=== PATIENT | male | born 1960 | race Caucasian/White ===

== ENCOUNTER 2018-01-05 06:06 | Inpatient (IN) | payer OTHER ==
--- NOTE | 2018-01-05 06:14 | ED ---
General Adult HPI - General Chief complaint: Chest Pain Stated complaint: chest pain Source: patient, RN notes reviewed, old records reviewed Mode of arrival: ambulatory Limitations: no limitations - History of Present Illness Initial comments: This is a 57-year-old male the ER for evaluation chest pain. Patient has severe left-sided heaviness and chest pain. No radiation. Symptoms started this morning and then the Progressed. He has had this pain before but usually goes away. History of smoking no other medical history. Patient takes no other medications. No recent travel history no sick contacts no cough or congestion. Occasional shortness of breath. - Related Data Home Medications Medication Instructions Recorded Confirmed [place]'s Wort 150 mg PO DAILY 01/05/18 01/05/18 Tart Pierce 1 tab PO DAILY 01/05/18 01/05/18 buPROPion XL [Wellbutrin XL] 150 mg PO DAILY 01/05/18 01/05/18 Previous Rx's Medication Instructions Recorded Aspirin 81 mg PO DAILY #30 chew 01/07/18 Atorvastatin [Lipitor] 80 mg PO DAILY #30 tab 01/07/18 Losartan [Cozaar] 50 mg PO DAILY #30 tab 01/07/18 Metoprolol Tartrate [Lopressor] 25 mg PO BID #60 tab 01/07/18 Nicotine 21Mg/24Hr Patch [Habitrol] 1 patch TRANSDERM DAILY #30 patch 01/07/18 Ticagrelor [Brilinta] 90 mg PO BID #30 tab 01/07/18 Allergies Allergy/AdvReac Type Severity Reaction Status Date / Time No Known Allergies Allergy Verified 01/05/18 07:22 Review of Systems ROS Statement: Those systems with pertinent positive or pertinent negative responses have been documented in the HPI. ROS Other: All systems not noted in ROS Statement are negative. Past Medical History Past Medical History: No Reported History History of Any Multi-Drug Resistant Organisms: None Reported Past Surgical History: Orthopedic Surgery Additional Past Surgical History / Comment(s): Neck surgery Past Psychological History: Anxiety Smoking Status: Current every day smoker Past Alcohol Use History: Daily, Heavy Past Drug Use History: None Reported - Past Family History Father Family Medical History: Cancer, Coronary Artery Disease (CAD), Diabetes Mellitus Additional Family Medical History / Comment(s): father from lung cancer at the age of 71 yrs. He was a smoker. Mother Family Medical History: Dementia, Pneumonia Additional Family Medical History / Comment(s): Mother at the age of 72 yrs. General Exam Limitations: no limitations General appearance: alert, in no apparent distress Head exam: Present: atraumatic, normocephalic, normal inspection Eye exam: Present: normal appearance, PERRL, EOMI. Absent: scleral icterus, conjunctival injection, periorbital swelling ENT exam: Present: normal exam, mucous membranes moist Neck exam: Present: normal inspection. Absent: tenderness, meningismus, lymphadenopathy Respiratory exam: Present: normal lung sounds bilaterally. Absent: respiratory distress, wheezes, rales, rhonchi, stridor Cardiovascular Exam: Present: regular rate, normal rhythm, normal heart sounds. Absent: systolic murmur, diastolic murmur, rubs, gallop, clicks GI/Abdominal exam: Present: soft, normal bowel sounds. Absent: distended, tenderness, guarding, rebound, rigid Extremities exam: Present: normal inspection, full ROM, normal capillary refill. Absent: tenderness, pedal edema, joint swelling, calf tenderness Back exam: Present: normal inspection Neurological exam: Present: alert, oriented X3, CN II-XII intact Psychiatric exam: Present: normal affect, normal mood Skin exam: Present: warm, dry, intact, normal color. Absent: rash Course Vital Signs 01/05/18 01/05/18 01/05/18 06:07 06:24 06:52 Temperature 97.8 F Pulse Rate 60 56 L Respiratory 20 20 Rate Blood Pressure 127/67 133/64 O2 Sat by Pulse 100 100 99 Oximetry 01/05/18 01/05/18 07:19 07:51 Temperature 98.8 F Pulse Rate 66 62 Respiratory 18 18 Rate Blood Pressure 116/64 120/68 O2 Sat by Pulse 98 97 Oximetry EKG Findings - EKG Comments: EKG Findings:: EKG shows sinus bradycardia rate of 58, OH 160, QRS 06, QTc 435. repeat. EKG shows sinus bradycardia rate of 58, OH 150, QRS 90, QTc 457 Medical Decision Making - Medical Decision Making 89 female the ER for evaluation of chest pain. Patient will be admitted for chest pain observation, chest x-ray negative - Lab Data Result diagrams: 01/07/18 05:48 01/07/18 05:48 Lab Results 01/05/18 01/05/18 01/05/18 Range/Units 06:15 06:15 06:15 WBC 6.5 (3.8-10.6) k/uL RBC 4.74 (4.30-5.90) m/uL Hgb 15.0 (13.0-17.5) gm/dL Hct 44.8 (39.0-53.0) % MCV 94.5 (80.0-100.0) fL MCH 31.6 (25.0-35.0) pg MCHC 33.5 (31.0-37.0) g/dL RDW 12.4 (11.5-15.5) % Plt Count 324 (150-450) k/uL Neutrophils % 41 % Lymphocytes % 48 % Monocytes % 4 % Eosinophils % 3 % Basophils % 0 % Neutrophils # 2.6 (1.3-7.7) k/uL Lymphocytes # 3.1 (1.0-4.8) k/uL Monocytes # 0.3 (0-1.0) k/uL Eosinophils # 0.2 (0-0.7) k/uL Basophils # 0.0 (0-0.2) k/uL PT (9.0-12.0) sec INR (<1.2) APTT (22.0-30.0) sec Sodium 142 (137-145) mmol/L Potassium 4.2 (3.5-5.1) mmol/L Chloride 107 (98-107) mmol/L Carbon Dioxide 23 (22-30) mmol/L Anion Gap 12 mmol/L BUN 9 (9-20) mg/dL Creatinine 0.68 (0.66-1.25) mg/dL Est GFR (CKD-EPI)AfAm >90 (>60 ml/min/1.73 sqM) Est GFR (CKD-EPI)NonAf >90 (>60 ml/min/1.73 sqM) Glucose 126 H (74-99) mg/dL Calcium 9.3 (8.4-10.2) mg/dL Magnesium 2.1 (1.6-2.3) mg/dL Total Bilirubin 0.4 (0.2-1.3) mg/dL AST 26 (17-59) U/L ALT 28 (21-72) U/L Alkaline Phosphatase 91 (38-126) U/L Total Creatine Kinase 74 (55-170) U/L CK-MB (CK-2) 0.7 (0.0-2.4) ng/mL CK-MB (CK-2) Rel Index 0.9 Troponin I 0.034 (0.000-0.034) ng/mL NT-Pro-B Natriuret Pep pg/mL Total Protein 7.3 (6.3-8.2) g/dL Albumin 4.5 (3.5-5.0) g/dL Triglycerides (<150) mg/dL Cholesterol (<200) mg/dL LDL Cholesterol, Calc (0-99) mg/dL HDL Cholesterol (40-60) mg/dL Lipase 226 (23-300) U/L 01/05/18 01/05/18 01/05/18 Range/Units 06:15 06:15 12:07 WBC (3.8-10.6) k/uL RBC (4.30-5.90) m/uL Hgb (13.0-17.5) gm/dL Hct (39.0-53.0) % MCV (80.0-100.0) fL MCH (25.0-35.0) pg MCHC (31.0-37.0) g/dL RDW (11.5-15.5) % Plt Count (150-450) k/uL Neutrophils % % Lymphocytes % % Monocytes % % Eosinophils % % Basophils % % Neutrophils # (1.3-7.7) k/uL Lymphocytes # (1.0-4.8) k/uL Monocytes # (0-1.0) k/uL Eosinophils # (0-0.7) k/uL Basophils # (0-0.2) k/uL PT 9.9 (9.0-12.0) sec INR 1.0 (<1.2) APTT 21.3 L (22.0-30.0) sec Sodium (137-145) mmol/L Potassium (3.5-5.1) mmol/L Chloride (98-107) mmol/L Carbon Dioxide (22-30) mmol/L Anion Gap mmol/L BUN (9-20) mg/dL Creatinine (0.66-1.25) mg/dL Est GFR (CKD-EPI)AfAm (>60 ml/min/1.73 sqM) Est GFR (CKD-EPI)NonAf (>60 ml/min/1.73 sqM) Glucose (74-99) mg/dL Calcium (8.4-10.2) mg/dL Magnesium (1.6-2.3) mg/dL Total Bilirubin (0.2-1.3) mg/dL AST (17-59) U/L ALT (21-72) U/L Alkaline Phosphatase (38-126) U/L Total Creatine Kinase 80 (55-170) U/L CK-MB (CK-2) 3.4 H* (0.0-2.4) ng/mL CK-MB (CK-2) Rel Index 4.3 Troponin I 0.208 H* (0.000-0.034) ng/mL NT-Pro-B Natriuret Pep 69 pg/mL Total Protein (6.3-8.2) g/dL Albumin (3.5-5.0) g/dL Triglycerides (<150) mg/dL Cholesterol (<200) mg/dL LDL Cholesterol, Calc (0-99) mg/dL HDL Cholesterol (40-60) mg/dL Lipase (23-300) U/L 01/05/18 01/05/18 01/05/18 Range/Units 12:07 12:07 18:13 WBC (3.8-10.6) k/uL RBC (4.30-5.90) m/uL Hgb (13.0-17.5) gm/dL Hct (39.0-53.0) % MCV (80.0-100.0) fL MCH (25.0-35.0) pg MCHC (31.0-37.0) g/dL RDW (11.5-15.5) % Plt Count (150-450) k/uL Neutrophils % % Lymphocytes % % Monocytes % % Eosinophils % % Basophils % % Neutrophils # (1.3-7.7) k/uL Lymphocytes # (1.0-4.8) k/uL Monocytes # (0-1.0) k/uL Eosinophils # (0-0.7) k/uL Basophils # (0-0.2) k/uL PT (9.0-12.0) sec INR (<1.2) APTT 26.8 (22.0-30.0) sec Sodium (137-145) mmol/L Potassium (3.5-5.1) mmol/L Chloride (98-107) mmol/L Carbon Dioxide (22-30) mmol/L Anion Gap mmol/L BUN (9-20) mg/dL Creatinine (0.66-1.25) mg/dL Est GFR (CKD-EPI)AfAm (>60 ml/min/1.73 sqM) Est GFR (CKD-EPI)NonAf (>60 ml/min/1.73 sqM) Glucose (74-99) mg/dL Calcium (8.4-10.2) mg/dL Magnesium (1.6-2.3) mg/dL Total Bilirubin (0.2-1.3) mg/dL AST (17-59) U/L ALT (21-72) U/L Alkaline Phosphatase (38-126) U/L Total Creatine Kinase 253 H (55-170) U/L CK-MB (CK-2) 23.2 H* (0.0-2.4) ng/mL CK-MB (CK-2) Rel Index 9.2 Troponin I 2.820 H* (0.000-0.034) ng/mL NT-Pro-B Natriuret Pep pg/mL Total Protein (6.3-8.2) g/dL Albumin (3.5-5.0) g/dL Triglycerides 69 (<150) mg/dL Cholesterol 182 (<200) mg/dL LDL Cholesterol, Calc 107 H (0-99) mg/dL HDL Cholesterol 61 H (40-60) mg/dL Lipase (23-300) U/L 01/05/18 01/06/18 01/06/18 Range/Units 19:28 02:25 02:25 WBC (3.8-10.6) k/uL RBC (4.30-5.90) m/uL Hgb (13.0-17.5) gm/dL Hct (39.0-53.0) % MCV (80.0-100.0) fL MCH (25.0-35.0) pg MCHC (31.0-37.0) g/dL RDW (11.5-15.5) % Plt Count 238 (150-450) k/uL Neutrophils % % Lymphocytes % % Monocytes % % Eosinophils % % Basophils % % Neutrophils # (1.3-7.7) k/uL Lymphocytes # (1.0-4.8) k/uL Monocytes # (0-1.0) k/uL Eosinophils # (0-0.7) k/uL Basophils # (0-0.2) k/uL PT (9.0-12.0) sec INR (<1.2) APTT 27.5 (22.0-30.0) sec Sodium (137-145) mmol/L Potassium (3.5-5.1) mmol/L Chloride (98-107) mmol/L Carbon Dioxide (22-30) mmol/L Anion Gap mmol/L BUN (9-20) mg/dL Creatinine (0.66-1.25) mg/dL Est GFR (CKD-EPI)AfAm (>60 ml/min/1.73 sqM) Est GFR (CKD-EPI)NonAf (>60 ml/min/1.73 sqM) Glucose (74-99) mg/dL Calcium (8.4-10.2) mg/dL Magnesium (1.6-2.3) mg/dL Total Bilirubin (0.2-1.3) mg/dL AST (17-59) U/L ALT (21-72) U/L Alkaline Phosphatase (38-126) U/L Total Creatine Kinase (55-170) U/L CK-MB (CK-2) (0.0-2.4) ng/mL CK-MB (CK-2) Rel Index Troponin I (0.000-0.034) ng/mL NT-Pro-B Natriuret Pep pg/mL Total Protein (6.3-8.2) g/dL Albumin (3.5-5.0) g/dL Triglycerides 72 (<150) mg/dL Cholesterol 145 (<200) mg/dL LDL Cholesterol, Calc 83 (0-99) mg/dL HDL Cholesterol 48 (40-60) mg/dL Lipase (23-300) U/L 01/06/18 01/06/18 Range/Units 02:25 10:03 WBC (3.8-10.6) k/uL RBC (4.30-5.90) m/uL Hgb (13.0-17.5) gm/dL Hct (39.0-53.0) % MCV (80.0-100.0) fL MCH (25.0-35.0) pg MCHC (31.0-37.0) g/dL RDW (11.5-15.5) % Plt Count (150-450) k/uL Neutrophils % % Lymphocytes % % Monocytes % % Eosinophils % % Basophils % % Neutrophils # (1.3-7.7) k/uL Lymphocytes # (1.0-4.8) k/uL Monocytes # (0-1.0) k/uL Eosinophils # (0-0.7) k/uL Basophils # (0-0.2) k/uL PT (9.0-12.0) sec INR (<1.2) APTT 37.1 H 56.1 H (22.0-30.0) sec Sodium (137-145) mmol/L Potassium (3.5-5.1) mmol/L Chloride (98-107) mmol/L Carbon Dioxide (22-30) mmol/L Anion Gap mmol/L BUN (9-20) mg/dL Creatinine (0.66-1.25) mg/dL Est GFR (CKD-EPI)AfAm (>60 ml/min/1.73 sqM) Est GFR (CKD-EPI)NonAf (>60 ml/min/1.73 sqM) Glucose (74-99) mg/dL Calcium (8.4-10.2) mg/dL Magnesium (1.6-2.3) mg/dL Total Bilirubin (0.2-1.3) mg/dL AST (17-59) U/L ALT (21-72) U/L Alkaline Phosphatase (38-126) U/L Total Creatine Kinase (55-170) U/L CK-MB (CK-2) (0.0-2.4) ng/mL CK-MB (CK-2) Rel Index Troponin I (0.000-0.034) ng/mL NT-Pro-B Natriuret Pep pg/mL Total Protein (6.3-8.2) g/dL Albumin (3.5-5.0) g/dL Triglycerides (<150) mg/dL Cholesterol (<200) mg/dL LDL Cholesterol, Calc (0-99) mg/dL HDL Cholesterol (40-60) mg/dL Lipase (23-300) U/L - Radiology Data Radiology results: report reviewed (Chest x-rays negative for acute disease), image reviewed Critical Care Time Critical Care Time: Yes Total Critical Care Time: 31 Disposition Clinical Impression: Chest pain Disposition: ADMITTED IP TO THIS HOSP Condition: Undetermined Is patient prescribed a controlled substance at d/c from ED?: No
[2018-01-05 06:49] LABS: Basophils % (A) 0 %; Eosinophils # (A) 0.2 k/uL (0-0.7); Eosinophils % (A) 3 %; HCT 44.8 % (39.0-53.0); Lymphocytes # (A) 3.1 k/uL (1.0-4.8); Lymphocytes % (A) 48 %; MCH 31.6 pg (25.0-35.0); MCHC 33.5 g/dL (31.0-37.0); MCV 94.5 fL (80.0-100.0); Mean Platelet Volume 6.4; Monocytes # (A) 0.3 k/uL (0-1.0); Monocytes % (A) 4 %; Neutrophils # (A) 2.6 k/uL (1.3-7.7); Neutrophils % (A) 41 %; Platelet Count 324 k/uL (150-450); RBC 4.74 m/uL (4.30-5.90); RDW 12.4 % (11.5-15.5); WBC 6.5 k/uL (3.8-10.6)
[2018-01-05] MEDS ORDERED: MORPHINE SULFATE 2 MG/ML SYRINGE IV PRN (06:52)
[2018-01-05] MEDS ORDERED: HEPARIN SODIUM,PORCINE 5,000 UNIT/ML 1 ML VIAL IV ONE (06:52)
[2018-01-05] MEDS ORDERED: NITROGLYCERIN SL TABS 0.4 MG TAB SUBLINGUAL PRN (06:52)
[2018-01-05 06:59] LABS: Albumin 4.5 g/dL (3.5-5.0); Anion Gap 12 mmol/L; Calcium 9.3 mg/dL (8.4-10.2); Carbon Dioxide 23 mmol/L (22-30); Chloride 107 mmol/L (98-107); Glucose 126 mg/dL (74-99); Lipase 226 U/L (23-300); Sodium 142 mmol/L (137-145); Total Bilirubin 0.4 mg/dL (0.2-1.3); Total Protein 7.3 g/dL (6.3-8.2)
[2018-01-05 07:04] LABS: Prothrombin Time 9.9 sec (9.0-12.0)
--- NOTE | 2018-01-05 07:04 | XR ---
EXAMINATION TYPE: XR chest 2V DATE OF EXAM: 01/05/2018 COMPARISON: 05/15/2017 HISTORY: Chest pain TECHNIQUE: Frontal and lateral views of the chest are obtained. FINDINGS: There is no heart failure nor confluent pneumonic infiltrate. Heart size is normal. There are chest leads. Costophrenic angles are clear. Bony thorax is intact. IMPRESSION: No active cardiopulmonary disease. No change.
[2018-01-05 07:06] LABS: ALT 28 U/L (21-72); AST 26 U/L (17-59); Alkaline Phosphatase 91 U/L (38-126); Blood Urea Nitrogen 9 mg/dL (9-20); Magnesium 2.1 mg/dL (1.6-2.3); Potassium 4.2 mmol/L (3.5-5.1)
[2018-01-05 07:16] LABS: Partial Thromboplastin Time 21.3 sec (22.0-30.0)
[2018-01-05] MEDS: HEPARIN SOD,PORK IN 0.45% NACL 25,000 UNIT in 0.45% NACL 1 500ML.BAG IV SCH (07:18)
[2018-01-05 07:25] LABS: Creatine Kinase MB 0.7 ng/mL (0.0-2.4); Troponin I 0.034 ng/mL (0.000-0.034)
[2018-01-05] MEDS: ATORVASTATIN 80 MG TAB PO SCH (10:17)
[2018-01-05] MEDS: METOPROLOL TARTRATE 25 MG TAB PO SCH ×2 (10:17→19:50)
[2018-01-05] MEDS: buPROPion XL 150 MG TAB.ER.24H PO SCH (11:56)
[2018-01-05 12:48] LABS: Cholesterol 182 mg/dL (<200); HDL Cholesterol 61 mg/dL (40-60); LDL Cholesterol,Calculated 107 mg/dL (0-99); Triglycerides 69 mg/dL (<150)
[2018-01-05 13:18] LABS: Creatine Kinase MB 3.4 ng/mL (0.0-2.4)
[2018-01-05 13:19] LABS: Troponin I 0.208 ng/mL (0.000-0.034)
--- NOTE | 2018-01-05 14:11 | CONS ---
CONSULTATION Mr. Dawson Gutierrez is a 57-year-old male patient who came in with chest discomfort in the left pectoral area radiating into the left shoulder and arm. He woke up this morning with this pain and it was quite severe and was relentless and therefore came to the ER. His first 12-lead ECG shows sinus rhythm with no definite ST-segment abnormalities, nonspecific changes noted as follows. 12-lead ECG also does not show any definite ST-segment abnormalities and looks fairly similar. First cardiac enzymes are normal; however, the 2nd cardiac enzymes borderline positive at 0.2. He did complain of discomfort of a similar nature about a week back, but it was mild and brief. PAST HISTORY: He denies hypertension, diabetes, dyslipidemia. SOCIAL HISTORY: He is a current smoker. FAMILY HISTORY: His parents had coronary artery disease documented when they were in the 60s. ALLERGIES: No known drug allergies. REVIEW OF SYSTEMS: No fever, chills, or rigors. No cough or expectoration. No nausea, vomiting, or diarrhea. No hematuria or dysuria. No strokes, seizures or skin lesions. No musculoskeletal complaints. His main complaint is the left pectoral chest discomfort radiating to the shoulder and left arm. PHYSICAL EXAMINATION: His vitals are stable. Blood pressure is 120/68 mmHg, pulse rate in the 60s. Head and neck examination is normal. Heart sounds are normal. Lungs are clear to auscultation. Extremities are warm, no edema. IMPRESSION: 1. Chest discomfort in the left pectoral radiating to the left shoulder and arm without any definite ST-T abnormalities of ischemia, but 2nd troponin is borderline positive. 2. History of smoking. SUGGEST: Continue aspirin, statins, heparin and low-dose beta blockers and 3rd set of cardiac enzymes and serial ECGs and consideration for coronary workup as an inpatient. MMODL / IJN: [id number] /
[2018-01-05] MEDS: NICOTINE 21MG/24HR PATCH TRANSDERM SCH (14:43)
[2018-01-05 19:16] LABS: Creatine Kinase MB 23.2 ng/mL (0.0-2.4); Troponin I 2.82 ng/mL (0.000-0.034)
[2018-01-05] MEDS: HEPARIN SODIUM,PORCINE 5,000 UNIT/ML 1 ML VIAL IV PRN (19:56)
[2018-01-05] MEDS ORDERED: LORazepam 2 MG/ML INJ IV PRN ×3 (21:17)
[2018-01-05] MEDS: NITROGLYCERIN OINT 1 INCH/GM PACKET TOPICAL SCH ×2 (23:16→23:30)
[2018-01-06 02:39] LABS: Mean Platelet Volume 6.5; Platelet Count 238 k/uL (150-450)
[2018-01-06 02:52] LABS: Cholesterol 145 mg/dL (<200); HDL Cholesterol 48 mg/dL (40-60); LDL Cholesterol,Calculated 83 mg/dL (0-99); Triglycerides 72 mg/dL (<150)
[2018-01-06] MEDS: HEPARIN SODIUM,PORCINE 5,000 UNIT/ML 1 ML VIAL IV PRN (03:21)
[2018-01-06] MEDS: HEPARIN SOD,PORK IN 0.45% NACL 25,000 UNIT in 0.45% NACL 1 500ML.BAG IV SCH (04:26)
[2018-01-06] MEDS: NITROGLYCERIN OINT 1 INCH/GM PACKET TOPICAL SCH ×2 (05:51→12:21)
[2018-01-06] MEDS ORDERED: ASPIRIN 325 MG TAB PO STA (07:55)
[2018-01-06] MEDS ORDERED: NITROGLYCERIN SL TABS 0.4 MG TAB SUBLINGUAL PRN ×2 (07:55→14:39)
[2018-01-06] MEDS ORDERED: ALPRAZolam 0.25 MG TAB PO PRN (07:55)
[2018-01-06] MEDS ORDERED: ATORVASTATIN 80 MG TAB PO STA (07:55)
[2018-01-06] MEDS ORDERED: SODIUM CHLORIDE 0.9% 1,000 ML in EMPTY BAG 1 BAG IV ONE (07:55)
[2018-01-06] MEDS ORDERED: ALPRAZolam 0.5 MG TAB PO PRN (07:55)
[2018-01-06] MEDS: ASPIRIN 81 MG PO SCH (08:22)
[2018-01-06] MEDS: METOPROLOL TARTRATE 25 MG TAB PO SCH ×2 (08:22→19:49)
[2018-01-06] MEDS: buPROPion XL 150 MG TAB.ER.24H PO SCH (08:23)
[2018-01-06] MEDS: ATORVASTATIN 80 MG TAB PO SCH (08:23)
[2018-01-06] MEDS ORDERED: ASPIRIN 325 MG TAB PO SCH (09:00)
--- NOTE | 2018-01-06 11:49 | P.PN ---
Progress Note - Text Patient has abnormal cardiac enzymes consistent with a non-Q-wave myocardial infarction/myocardial injury. Discussed the patient discussed with his family. In view of his risk factors, symptomatology and cardiac enzymes out proceed with coronary angiography today to evaluate his coronary arteries. Risks and benefits discussed in detail. Discussed with Dr. Landers. We will proceed today. On appropriate medical treatment. Heparin will be held on way to the [facility]
--- NOTE | 2018-01-06 12:51 | PN ---
PROGRESS NOTE Dawson Gutierrez is a 57-year-old male patient who presented with chest discomfort radiating to the left shoulder and arm yesterday. He had mild tightness in the chest overnight and his second cardiac enzyme was abnormal and the third cardiac enzyme bronson further. His first troponin was normal, second troponin 0.2 and the third troponin 2.8. CPKs bronson from 80 to 253. LDL is 107. His blood pressure is 103/52 mmHg, pulse rate in the 60s, temperature 97.1 degrees Fahrenheit. Head and neck examination is normal. Heart sounds are normal. Lungs are clear on auscultation. Abdomen is soft, nontender. Extremities are warm. No edema. There are no murmurs, no rub. IMPRESSION: 1. Non-Q-wave myocardial infarction. 2. History of smoking. 3. Nondiabetic, nonhypertensive. His electrolytes are normal. SUGGEST: I had a detailed discussion with the patient regarding the causes of acute myocardial injury and I have recommended proceeding with coronary angiography today. His ECG did not show any definite ST-segment abnormalities. I discussed this with Dr. Landers. I discussed this with the patient and his family and discussed the risks and benefits. MMODL / IJN: [id number] /
[2018-01-06] MEDS ORDERED: VERAPAMIL 2.5 MG/ML 2 ML AMP ONE (12:57)
[2018-01-06] MEDS ORDERED: IV FLUID CONTINUATION 550 ML IV ONE (13:02)
[2018-01-06] MEDS ORDERED: MIDAZOLAM 2 MG/2 ML VIAL ONE (13:12)
[2018-01-06] MEDS ORDERED: diphenhydrAMINE 50 MG/ML 1 ML VIAL ONE (13:12)
[2018-01-06] MEDS ORDERED: MIDAZOLAM 2 MG/2 ML VIAL IV ONE (13:28)
[2018-01-06] MEDS ORDERED: diphenhydrAMINE 50 MG/ML 1 ML VIAL IVP ONE (13:31)
[2018-01-06] MEDS ORDERED: LIDOCAINE 2% SYG (PF) 100 MG/5 ML MISCELLANE ONE (13:33)
[2018-01-06] MEDS ORDERED: HEPARIN SODIUM 1,000 UN/ML (10ML VL) ONE (13:34)
[2018-01-06] MEDS: VERAPAMIL SYRINGE (5 MG/10 ML) INTRAARTER ONE ×2 (13:36→14:22)
[2018-01-06] MEDS ORDERED: BIVALIRUDIN 250 MG in SODIUM CHLORIDE 0.9% 50 ML IV ONE (13:43)
[2018-01-06] MEDS ORDERED: BIVALIRUDIN BOLUS 250 MG/50 ML IV ONE (13:43)
[2018-01-06] MEDS ORDERED: IOPAMIDOL-370 50ML BTL INJ ONE (13:52)
[2018-01-06] MEDS ORDERED: IOPAMIDOL-370 100ML BTL INJ ONE ×2 (14:01→14:24)
[2018-01-06] MEDS ORDERED: TICAGRELOR 90 MG TAB ONE (14:05)
[2018-01-06] MEDS ORDERED: MORPHINE SULFATE 4 MG/ML SYRINGE ONE (14:10)
[2018-01-06] MEDS ORDERED: TICAGRELOR 90 MG TAB PO ONE (14:18)
[2018-01-06] MEDS ORDERED: ATROPINE SULFATE 0.1 MG/ML 10ML SYRINGE IV PRN (14:39)
[2018-01-06] MEDS ORDERED: RX INFO: IV CONTRAST WAS GIVEN 1 EACH MISC MISCELLANE PRN (14:39)
[2018-01-06] MEDS ORDERED: MAG HYDROX/AL HYDROX/SIMETH 30 ML CUP PO PRN (14:39)
[2018-01-06] MEDS ORDERED: ZOLPIDEM 5 MG TAB PO PRN (14:39)
[2018-01-06] MEDS: NICOTINE 21MG/24HR PATCH TRANSDERM SCH (15:22)
[2018-01-06] MEDS: SODIUM CHLORIDE 0.9% 1,000 ML IV SCH (15:24)
--- NOTE | 2018-01-06 15:53 | P.HPIM ---
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 He is day and last drink was yesterday who presents because of chest pain on the presentation patient troponins went up from 0.2-2.[address] changes on the EKG. Patient has been evaluated by ruling machine set up operator already and they recommended cardiac cath. Chest x-ray was unremarkable Review of Systems CONSTITUTIONAL: No fever, no malaise, no fatigue. HEENT: No recent visual problems or hearing problems. Denied any sore throat. CARDIOVASCULAR: No orthopnea, PND, no palpitations, no syncope. PULMONARY: No shortness of breath, no cough, no hemoptysis. GASTROINTESTINAL: No diarrhea, no nausea, no vomiting, no abdominal pain. Normoactive bowel sounds. NEUROLOGICAL: No headaches, no weakness, no numbness. HEMATOLOGICAL: Denies any bleeding or petechiae. GENITOURINARY: Denies any burning micturition, frequency, or urgency. MUSCULOSKELETAL/RHEUMATOLOGICAL: Denies any joint pain, swelling, or any muscle pain. ENDOCRINE: Denies any polyuria or polydipsia. Past Medical History Past Medical History: Chest Pain / Angina, GERD/Reflux, Osteoarthritis (OA) Additional Past Medical History / Comment(s): Arthritis R ankle, occasional cervical pain Last Myocardial Infarction Date:: 1997 History of Any Multi-Drug Resistant Organisms: None Reported Past Surgical History: Heart Catheterization, Orthopedic Surgery Additional Past Surgical History / Comment(s): 1997 cardiac cath-normal, cervical discectomy, colonoscopy-normal Past Anesthesia/Blood Transfusion Reactions: No Reported Reaction Past Psychological History: Anxiety, Depression Additional Psychological History / Comment(s): Pt resides with his significant other. He works at [email or web address]. He is independent. Smoking Status: Current every day smoker Past Alcohol Use History: Daily, Heavy Additional Past Alcohol Use History / Comment(s): Pt started smoking in 1971 and is a 1-1.5 ppd smoker. He drinks 8 beers a day and last drank yesterday. Past Drug Use History: None Reported - Past Family History Father Family Medical History: Cancer, Coronary Artery Disease (CAD), Diabetes Mellitus Additional Family Medical History / Comment(s): father from lung cancer at the age of 71 yrs. He was a smoker. Mother Family Medical History: Dementia, Pneumonia Additional Family Medical History / Comment(s): Mother at the age of 72 yrs. Medications and Allergies Home Medications Medication Instructions Recorded Confirmed Type [place]'s Wort 150 mg PO DAILY 01/05/18 01/05/18 History Tart Pierce 1 tab PO DAILY 01/05/18 01/05/18 History buPROPion XL [Wellbutrin Xl] 150 mg PO DAILY 01/05/18 01/05/18 History Allergies Allergy/AdvReac Type Severity Reaction Status Date / Time No Known Allergies Allergy Verified 01/05/18 07:22 Physical Exam Vitals: Vital Signs Temp Pulse Resp BP Pulse Ox 01/06/18 14:54 72 17 124/81 96 01/06/18 14:39 18 129/73 95 01/06/18 12:00 52 L 18 98/57 95 01/06/18 08:00 97.1 F L 54 L 18 99/54 97 01/06/18 07:57 97.1 F L 54 L 18 99/54 97 01/06/18 03:29 66 16 01/06/18 03:26 99.5 F 66 16 103/52 94 L 01/06/18 00:00 99.5 F 58 L 16 105/64 97 01/05/18 19:45 98.2 F 62 16 107/55 98 01/05/18 16:00 97.6 F 55 L 18 110/66 96 Intake and Output 01/06/18 01/06/18 01/06/18 06:59 14:59 22:59 Intake Total 801.764 287.22 Balance 801.764 287.22 Intake: IV 287.22 Intake, IV Titration 201.764 Amount Heparin Sod,Pork in 0.45% 201.764 NaCl 25,000 unit In 0.45 % NaCl 1 500ml.bag @ 12 UNITS/KG/HR 18.5 mls/hr IV .Q24H [facility] Rx#: [id number] Oral 600 Other: Voiding Method Toilet # Voids 2 0 Weight 80 kg GENERAL: The patient is alert and oriented x3, not in any acute distress. Well developed, well nourished. HEENT: Pupils are round and equally reacting to light. EOMI. No scleral icterus. No conjunctival pallor. Normocephalic, atraumatic. No pharyngeal erythema. No thyromegaly. CARDIOVASCULAR: S1 and S2 present. No murmurs, rubs, or gallops. PULMONARY: Chest is clear to auscultation, no wheezing or crackles. ABDOMEN: Soft, nontender, nondistended, normoactive bowel sounds. No palpable organomegaly. MUSCULOSKELETAL: No joint swelling or deformity. EXTREMITIES: No cyanosis, clubbing, or pedal edema. NEUROLOGICAL: Gross neurological examination did not reveal any focal deficits. SKIN: No rashes. Results CBC & Chem 7: 01/06/18 02:25 01/05/18 06:15 Labs: Abnormal Lab Results - Last 24 Hours (Table) 01/05/18 01/06/18 01/06/18 Range/Units 18:13 02:25 10:03 APTT 37.1 H 56.1 H (22.0-30.0) sec Total Creatine Kinase 253 H (55-170) U/L CK-MB (CK-2) 23.2 H* (0.0-2.4) ng/mL Troponin I 2.820 H* (0.000-0.034) ng/mL Thrombosis Risk Factor Assmnt - Choose All That Apply Any of the Below Risk Factors Present?: Yes Each Factor Represents 1 point: Age 41-60 years Other Risk Factors: No Other congenital or acquired thrombophilia - If yes, enter type in comment: No Thrombosis Risk Factor Assessment Total Risk Factor Score: 1 Thrombosis Risk Factor Assessment Level: Low Risk Assessment and Plan Assessment: -Non-STEMI, trending up troponin. S/P cardiac cath on 01/06/2018 -History of heavy smoking 1-1.5 PPD -Alcohol abuse, 8 beers per day -Hypertension Plan: Patient is a 57 years old male with significant history of heavy smoking presents with chest pain and trending up troponins found to have non-STEMI. He was evaluated by cardiology was started him on heparin drip and took him to the cardiac cath with 2 stents placed, patient already feels better as no more chest pain or dyspnea or dizziness. We'll continue with same treatment, continue with symptomatic treatment. Patient on losartan and metoprolol. Continue with Lipitor. We'll place patient on see what protocol and placed vitamins like folic acid, thiamine and MVT. Continue with nicotine patch. Pain management. for DVT prophylaxis patient is already on heparin drip. Continue with GI prophylaxis. Prognosis remains guarded given the severity and complexity of his medical problems
[2018-01-06] MEDS ORDERED: THIAMINE 100 MG in SODIUM CHLORIDE 0.9% 100 ML IVPB SCH (16:00)
[2018-01-06] MEDS: LOSARTAN 50 MG TAB PO SCH (16:36)
[2018-01-06 16:51] VITALS: BMI 26.0
--- NOTE | 2018-01-06 16:51 | CC ---
CARDIAC CATHETERIZATION REPORT DATE OF SERVICE: 01/06/2018. PROCEDURES: 1. Left heart catheterization, coronary angiography and left ventriculography. 2. Percutaneous transluminal coronary angioplasty and stenting of ostial and proximal right coronary artery. PERFORMED BY: Dr. Annika Landers. Moderate conscious sedation time was 54 minutes. Patient was administered Versed, Benadryl and morphine and his oxygen saturation, hemodynamics and EKG were monitored closely. CLINICAL INFORMATION: Mr. Dawson Gutierrez is a 57-year-old gentleman, a patient of Dr. Yuan Allison, who came into the hospital with chest pain suggestive of unstable angina. He smokes more than 1 pack a day and drinks 6-8 beers on a daily basis. He has underlying anxiety disorder and takes Wellbutrin. He is a smoker and also proper has a family history of CAD, but cholesterol status is unknown. He presented with a non-ST elevation IL without significant EKG changes and was advised coronary angiography after due discussion and evaluation by Dr. Riojas. I saw the patient in the lab, explained to him the rationale, risks, benefits, options and then proceeded to perform the procedure when he was fully agreeable. PROCEDURE NOTE: Under local anesthesia and strict aseptic precautions, a 6-Maltese introducer was placed in the right radial artery. Using an Ultimate 1 catheter, I performed selective coronary angiography of both coronary arteries. I used a pigtail catheter to check an LV gram to check LV pressures and performed the LV gram in the MATTHEWS projection. Subsequently, I noted that he had a 99% mid RCA lesion with collateralization of the left system and ostial lesion of 80% which was calcified. He was advised intervention that was performed in the same setting. CARDIAC CATHETERIZATION FINDINGS: The left ventricular end-diastolic pressure was 16-18 mmHg without gradient across aortic valve. Left ventriculogram: This was performed in 30-degree MATTHEWS projection revealed left ventricle which is at upper limits of normal with inferobasal hypokinesia and estimated ejection fraction of about 40%-45% by visual inspection. There is also some global decrease in contractility as well. There is no significant mitral regurgitation. CORONARY ANGIOGRAPHY FINDINGS: Left main coronary artery: This is a short patent disease-free vessel that bifurcates into LAD and circumflex. Left anterior descending coronary artery: Good caliber vessel extends along the anterior wall, gives off several septal branches and smaller diagonal branches, runs. There is a proximal diagonal which is large, has a 40% proximal lesion. Mid LAD has a 40% lesion. Then the caliber improves and it runs all the way to the apex and curves over the apex to supply the inferoapical portion of the left ventricle. LAD does not have any critical disease, but there is a plaque in the major diagonal of about 30% to 40% and the mid LAD has another 40%-45% lesion. The septal and diagonal branches are free of significant disease. left posterior circumflex coronary artery: Technically this is a nondominant vessel, gives off a single large obtuse marginal that runs laterally, has no significant disease. The continuation of the circumflex in the AV groove is also free of significant disease. Distal branches of circumflex have minor irregularities, but no significant disease is noted. No significant disease is noted. The first obtuse marginal gives off a secondary branch which has minor irregularities. Overall, the circumflex is nondominant, has no significant disease. Right coronary artery: This is a dominant vessel, has an ostial lesion of 80% and a proximal lesion of 95%-99% with thrombus with sluggish flow. This appears to be the culprit lesion. Ostial lesion is calcified and is at least 80% mid lesion, is 99% with thrombus. The flow in the RCA is very sluggish and there are collaterals coming from the left system. FINAL IMPRESSION: This patient has a 99% mid right coronary artery lesion, ostial right coronary artery lesion was 80%. There is also a 45% mid left anterior descending lesion and circumflex is free of significant disease. The ejection fraction is 40%-45% with inferobasal hypokinesia and mild global decrease in contractility. RECOMMENDATION: I recommended a PCI of RCA and proceeded to perform this in the same setting. PERCUTANEOUS INTERVENTION DETAILS: I used a standard right Braulio guide catheter to cannulate the right coronary artery. The ostium was quite tight and there was damping with the cannulation. I used a run- through wire and I was able to cross the lesion and when the catheter was left somewhat proximal to the ostium, so there was no damping. Pre-dilatation was performed using a 12 mm long 3.0 caliber NC Trek balloon. The mid lesion was dilated at 8 atmospheres and ostial lesion was dilated at 12 atmospheres. I then deployed a 23 mm long Xience stent in the mid lesion with excellent angiographic result. There was a small side branch that occluded. The ostium was addressed with a 3.0 caliber 8 mm long Xience stent at 15 atmospheres. Excellent angiographic result was achieved. There was no further damping of pressures. The residual stenosis was 0% with remarkably improvement in angiographic appearance and flow without complication. The sheath was taken out and a TR band applied as per protocol. The saturation in the fingers of the right hand was 94%. The patient was administered Brilinta 180 mg p.o. and also Angiomax bolus and drip was given as per protocol. Excellent angiographic result without complication was achieved and results were discussed with the patient and . I expect that he will be discharged home in the next 48 hours. MMODL / IJN: [id number] /
--- NOTE | 2018-01-06 16:57 | LTR ---
Dear Dr. Allison: Thank you for the opportunity to participate in the care of Mr. Dawson Gutierrez. I am pleased to report to you that he had an excellent angiographic result. This gentleman had a 99% RCA lesion with thrombus. This was a dominant RCA. Two drug-eluting stents were deployed. There was ostial lesion as well. Excellent angiographic result without complication has been achieved and patient will hopefully be discharged in the next 36- 48 hours. He should be on dual antiplatelet therapy without interruption. He was counseled regarding need to quit smoking and also modify lifestyle changes. Thank you for referral and please call for questions. MMODL / IJN: [id number] /
[2018-01-06] MEDS: THIAMINE 100 MG/ML 2 ML VIAL IVP SCH (17:45)
[2018-01-06] MEDS: FAMOTIDINE 20 MG/2 ML VIAL IV SCH (19:48)
[2018-01-07] MEDS: SODIUM CHLORIDE 0.9% 1,000 ML IV SCH (03:19)
[2018-01-07 07:04] LABS: Basophils % (A) 0 %; Eosinophils # (A) 0.1 k/uL (0-0.7); Eosinophils % (A) 1 %; HCT 39.9 % (39.0-53.0); HGB 13.2 gm/dL (13.0-17.5); Lymphocytes # (A) 1.8 k/uL (1.0-4.8); Lymphocytes % (A) 22 %; MCH 31.6 pg (25.0-35.0); MCHC 33.2 g/dL (31.0-37.0); MCV 95.2 fL (80.0-100.0); Mean Platelet Volume 6.6; Monocytes # (A) 0.5 k/uL (0-1.0); Monocytes % (A) 6 %; Neutrophils # (A) 5.6 k/uL (1.3-7.7); Neutrophils % (A) 69 %; Platelet Count 248 k/uL (150-450); RBC 4.19 m/uL (4.30-5.90); RDW 12.3 % (11.5-15.5); WBC 8.1 k/uL (3.8-10.6)
[2018-01-07 07:27] LABS: Anion Gap 9 mmol/L; Blood Urea Nitrogen 9 mg/dL (9-20); Carbon Dioxide 27 mmol/L (22-30); Chloride 106 mmol/L (98-107); Glucose 100 mg/dL (74-99); Potassium 4.2 mmol/L (3.5-5.1); Sodium 142 mmol/L (137-145)
[2018-01-07] MEDS: METOPROLOL TARTRATE 25 MG TAB PO SCH (08:09)
[2018-01-07] MEDS: buPROPion XL 150 MG TAB.ER.24H PO SCH (08:10)
[2018-01-07] MEDS: FAMOTIDINE 20 MG/2 ML VIAL IV SCH (08:10)
[2018-01-07] MEDS: ASPIRIN 81 MG PO SCH (08:10)
[2018-01-07] MEDS: ATORVASTATIN 80 MG TAB PO SCH (08:10)
[2018-01-07] MEDS: LOSARTAN 50 MG TAB PO SCH (08:10)
[2018-01-07] MEDS: THIAMINE 100 MG/ML 2 ML VIAL IVP SCH (08:11)
[2018-01-07 08:22] VITALS: BP 114/57; PULSE 74; RESP 18; TEMP 98.1
[2018-01-07] MEDS ORDERED: TICAGRELOR 90 MG TAB PO SCH (09:00)
--- NOTE | 2018-01-07 09:41 | P.PN ---
Subjective This is a pleasant 57 years old male with past medical history of angina status post cardiac catheterization, GERD, osteoarthritis, arthritis of the right ankle and cervical spine, current smoker 1-1.5 PPD since age 13, currently drinker about 8. He is day and last drink was yesterday who presents because of chest pain on the presentation patient troponins went up from 0.2-2.[address] changes on the EKG. Patient has been evaluated by manager operating already and they recommended cardiac cath. Chest x-ray was unremarkable Objective - Vital Signs Vital signs: Vital Signs Temp 98.1 F 01/07/18 08:00 Pulse 74 01/07/18 08:00 Resp 18 01/07/18 08:00 BP 114/57 01/07/18 08:00 Pulse Ox 99 01/07/18 08:00 Intake & Output 01/06/18 01/07/18 01/07/18 18:59 06:59 18:59 Intake Total 527.22 600 240 Balance 527.22 600 240 Weight 80 kg 78.2 kg Intake: IV 287.22 Oral 240 600 240 Other: Voiding Method Toilet # Voids 0 2 - Exam GENERAL: The patient is alert and oriented x3, not in any acute distress. Well developed, well nourished. HEENT: Pupils are round and equally reacting to light. EOMI. No scleral icterus. No conjunctival pallor. Normocephalic, atraumatic. No pharyngeal erythema. No thyromegaly. CARDIOVASCULAR: S1 and S2 present. No murmurs, rubs, or gallops. PULMONARY: Chest is clear to auscultation, no wheezing or crackles. ABDOMEN: Soft, nontender, nondistended, normoactive bowel sounds. No palpable organomegaly. MUSCULOSKELETAL: No joint swelling or deformity. EXTREMITIES: No cyanosis, clubbing, or pedal edema. NEUROLOGICAL: Gross neurological examination did not reveal any focal deficits. SKIN: No rashes. - Labs CBC & Chem 7: 01/07/18 05:48 01/07/18 05:48 Labs: Abnormal Lab Results - Last 24 Hours (Table) 01/06/18 01/07/18 01/07/18 Range/Units 10:03 05:48 05:48 RBC 4.19 L (4.30-5.90) m/uL APTT 56.1 H (22.0-30.0) sec Glucose 100 H (74-99) mg/dL Assessment and Plan Assessment: -Non-STEMI, trending up troponin. S/P cardiac cath on 01/06/2018 -History of heavy smoking 1-1.5 PPD -Alcohol abuse, 8 beers per day -Hypertension Plan: Patient is a 57 years old male with significant history of heavy smoking presents with chest pain and trending up troponins found to have non-STEMI. He was evaluated by cardiology was started him on heparin drip (Discontinued) and took him to the cardiac cath with 2 stents placed, he was started on Brilinta on the top of his aspirin patient already feels better as no more chest pain or dyspnea or dizziness. We'll continue with same treatment, continue with symptomatic treatment. Patient on losartan and metoprolol. Continue with Lipitor. We'll place patient on see what protocol and placed vitamins like folic acid, thiamine and MVT. Continue with nicotine patch. Pain management. for DVT prophylaxis Continue with GI prophylaxis. However patient's on 2017 decided to sign AMA. Patient denies any chest pain. No dyspnea. No change in urine or bowel habits. No fever. No other complaints. He just wanted to leave the hospital. Dr. Martin from cardiology and me as long talking about the patient about the risks, benefits, and alternative of leaving AMA including but not limited to the risk of more heart attack and damage, heart failure, organ dysfunction, permanent organ damage and or . He verbalized understanding however he still wants to leave. daughter was at bedside upon patient request. Patient will be given a prescription for aspirin and Brilinta and risks including but not limited to risk of bleeding into the brain or GI, organ dysfunction and/or are explained to the patient and he agrees to take this medication although pt is signing leaving AMA, however giving these medication has more benefits than risk, and pt agrees Patient applied a prescription for aspirin Brilinta, Lipitor, nicotine patch, losartan and metoprolol. Patient instructed to follow up with his PCP and he told me tomorrow his going to call his PCP Dr. Allison and medical follow-up within a week with a recommendation to check his blood test with his doctor. And also recommended going to call make appointment with manager operating in 1-2 weeks. Cardiology team were communicated and updated with this results and they are in agreement Time with Patient: Greater than 30
--- NOTE | 2018-01-07 11:13 | PN ---
PROGRESS NOTE Mr. Gutierrez is a 57-year-old male patient who was admitted with angina-like symptoms with chest discomfort radiating to the left shoulder and arm. His ECG did not show any significant abnormalities, but his troponins were clearly abnormal consistent with acute myocardial injury. He underwent coronary angiography yesterday and Dr. Landers performed the procedure. The right coronary artery had an ostial lesion of about 80% and a proximal lesion of about 90-95%. A sluggish flow. Thrombus was noted. There was sluggish flow in the RCA and there were collaterals coming from the left side. The left circumflex was a nondominant vessel. The mid LAD had a 40% stenosis, proximal diagonal vessel was large and a 40% proximal stenosis. This was a wrap-around the LAD that supplied the inferoapical portion of the left ventricle. His LV exam showed the left ventricular ejection fraction of 40-45%. Inferobasal hypokinesis. He underwent coronary stenting of the RCA. A drug-eluting stents were placed. He did well overnight. His vitals are stable. He is pain free at this time. Blood pressure 114/57 mmHg, pulse rate in the 70s. Afebrile, 98.1 degrees Fahrenheit. Heart sounds S1, S2 normal. No murmurs or gallops. No rub. Breath sounds are clear. No rhonchi, no crackles. Abdomen is soft, nontender. Extremities are warm. No edema. IMPRESSION: 1. Non-Q-wave myocardial infarction with an occluded RCA with thrombus with sluggish flow, [id number] collaterals and the presence of a wrap-around LAD. 2. Coronary artery disease in the large diagonal vessel of about 40% and another 40% mid LAD stenosis. 3. Nondominant left circumflex vessel. 4. Regular beer drinking at least 5-6 a day. 5. Current smoker. 6. Cardiomyopathy, ejection fraction 40-45% with inferior wall hypokinesia basal hypokinesis, combination of ischemic and possibly even nonischemic secondary to alcohol use. SUGGEST: Dual anti-platelet therapy, statins and beta blockers and complete abstinence from smoking. Reduce alcohol intake, minimize alcohol intake. I had a detailed discussion with the patient regarding this as well as in followup. I would advise that he stay for at least another 24 hours to observe him on telemetry since he had a clear non-Q-wave myocardial infarction and has cardiomyopathy. I explained the risk of sudden cardiac as well as other mechanical complications of post myocardial infarction which are clearly lethal. However, the patient wants to go home. I would not advise him to go home. I will see him in followup in the next 1-2 weeks. MMDAPHNIE / PHANIN: [id number] /
--- NOTE | 2018-01-07 11:15 | P.DS ---
Providers Date of admission: 01/06/18 15:07 Attending physician: Yuan Allison Consults: 01/05/18 06:52 Consult Physician Urgent Consulting Provider: Aron Felix Consult Reason/Comments: cp Do you want consulting provider notified?: Yes 01/06/18 14:39 Consult Physician Routine Consulting Provider: [facility] Consult Reason/Comments: Post Interventional patient Do you want consulting provider notified?: Already Contacted Primary care physician: Yuan Allison [facility] Course: This is a pleasant 57 years old male with an healthy lifestyle with heavy smoking and drinking alcohol Patient presents with signs and symptoms of coronary artery syndrome. Patient underwent cardiac cath and 2 stents were placed by pivot end polisher. Patient was started on aspirin and Brilanta, patient decided to sign AMA. Look at the previous records for more details Patient Condition at Discharge: Undetermined Plan - Discharge Summary Discharge Rx Participant: No New Discharge Prescriptions: New Aspirin 81 mg PO DAILY #30 chew Atorvastatin [Lipitor] 80 mg PO DAILY #30 tab Losartan [Cozaar] 50 mg PO DAILY #30 tab Metoprolol Tartrate [Lopressor] 25 mg PO BID #60 tab Nicotine 21Mg/24Hr Patch [Habitrol] 1 patch TRANSDERM DAILY #30 patch Ticagrelor [Brilinta] 90 mg PO BID #30 tab Continue buPROPion XL [Wellbutrin XL] 150 mg PO DAILY Tart Pierce 1 tab PO DAILY Brianna's Wort 150 mg PO DAILY Discharge Medication List Brianna's Wort 150 mg PO DAILY 01/05/18 [History] Tart Pierce 1 tab PO DAILY 01/05/18 [History] buPROPion XL [Wellbutrin XL] 150 mg PO DAILY 01/05/18 [History] Aspirin 81 mg PO DAILY #30 chew 01/07/18 [Rx] Atorvastatin [Lipitor] 80 mg PO DAILY #30 tab 01/07/18 [Rx] Losartan [Cozaar] 50 mg PO DAILY #30 tab 01/07/18 [Rx] Metoprolol Tartrate [Lopressor] 25 mg PO BID #60 tab 01/07/18 [Rx] Nicotine 21Mg/24Hr Patch [Habitrol] 1 patch TRANSDERM DAILY #30 patch 01/07/18 [ Rx] Ticagrelor [Brilinta] 90 mg PO BID #30 tab 01/07/18 [Rx] Follow up Appointment(s)/Referral(s): Dinh Riojas MD [STAFF PHYSICIAN] - 2 Weeks Yuan Allison DO [Primary Care Provider] - 1-2 days (Spoke to bumboater. Office will call with appointment time) Discharge Disposition: Left Against Medical Advice
[2018-01-07] MEDS ORDERED: FOLIC ACID 1 MG TAB PO SCH (12:00)
== END 2018-01-07 09:56 | disposition left against medical advice (07) | DRG 247 ==
LOC: EC 06:06 → 6SEL 06:52 → OBSVTOIN 01-06 15:07
PROVIDERS: ADMIT Family Medicine; ATTEND Family Medicine
PROC: B2111ZZ Fluoroscopy of Multiple Coronary Arteries using Low Osmolar Contrast (ICD-10-PCS; 2018-01-06)
PROC: B2151ZZ Fluoroscopy of Left Heart using Low Osmolar Contrast (ICD-10-PCS; 2018-01-06)
PROC: 4A023N7 Measurement of Cardiac Sampling and Pressure, Left Heart, Percutaneous Approach (ICD-10-PCS; principal; 2018-01-06 12:47)
PROC: 027035Z Dilation of Coronary Artery, One Artery with Two Drug-eluting Intraluminal Devices, Percutaneous Approach (ICD-10-PCS; 2018-01-06 12:47)
DX: I21.4 Non-ST elevation (NSTEMI) myocardial infarction (principal); I42.6 Alcoholic cardiomyopathy; F10.10 Alcohol abuse, uncomplicated; F17.200 Nicotine dependence, unspecified, uncomplicated; F32.9 Major depressive disorder, single episode, unspecified; F41.9 Anxiety disorder, unspecified; I10 Essential (primary) hypertension; I25.10 Atherosclerotic heart disease of native coronary artery without angina pectoris; K21.9 Gastro-esophageal reflux disease without esophagitis; M19.071 Primary osteoarthritis, right ankle and foot; Z79.82 Long term (current) use of aspirin; Z80.1 Family history of malignant neoplasm of trachea, bronchus and lung; Z82.49 Family history of ischemic heart disease and other diseases of the circulatory system; Z83.3 Family history of diabetes mellitus; E78.5 Hyperlipidemia, unspecified; M47.9 Spondylosis, unspecified; I25.2 Old myocardial infarction; Z79.899 Other long term (current) drug therapy; Z82.0 Family history of epilepsy and other diseases of the nervous system
CPT/HCPCS: 36415; 71046; 80048; 80053; 80061; 82550; 82553; 83690; 83735; 83880; 84484; 85025; 85049; 85610; 85730; 93005; 93458; 96365; 96376; 99291

== ENCOUNTER → 2021-05-05 | Outpatient (CLI) | payer OTHER ==
--- NOTE | 2021-05-05 09:19 | MM ---
Reason for exam: clinical finding. History: Family history of breast cancer in paternal grandfather and breast cancer in sister. Excisional biopsy of the left breast, 2016. Indicated problem(s): lump or thickening in the left breast. Physical Findings: Nurse Summary: 4-5cm nodule in the left retroareolar breast (nurse TM). MG 3D Diag Mammo W/Cad DIANA Bilateral CC and MLO view(s) were taken. Increased left retroareolar density. Ultrasound recommended. These results were verbally communicated with the patient and result sheet given to the patient on 05/05/21. ASSESSMENT: Incomplete: need additional imaging evaluation, BI-RAD 0 RECOMMENDATION: Ultrasound of the left breast.
--- NOTE | 2021-05-05 09:22 | USB ---
Reason for exam: additional evaluation requested from abnormal screening. History: Family history of breast cancer in paternal grandfather and breast cancer in sister. Excisional biopsy of the left breast, 2016. US Breast Limited BILAT Right limited breast ultrasound including focal area of concern, retroareolar and axilla demonstrates no cystic or solid lesion seen. Left complete breast ultrasound includes all four quadrants, the retroareolar region and axilla. Finding demonstrates a 14 x 10 x 13mm irregular, solid, hypoechoic, vascular lesion at the posterior nipple BB and a 9mm and a 10mm lymph node at the axilla. These results were verbally communicated with the patient and result sheet given to the patient on 05/05/21. ASSESSMENT: Suspicious, BI-RAD 4 RECOMMENDATION: Ultrasound core biopsy of the left breast. Called Dr. Allison office with mammographic findings and has scheduled an appointment for the patient for 06/17/21 at 11:[address] Mckeon. Biopsy scheduled for 05/20/21 at 10:30. PRELIMINARY REPORT CALLED AND FAXED TO DR. MCKEON ON 05/05/21.
== END | disposition home or self-care (01) ==
LOC: RADUSWWP 04-27 07:31
PROVIDERS: ATTEND Family Medicine
DX: R92.8 Other abnormal and inconclusive findings on diagnostic imaging of breast (principal); N64.89 Other specified disorders of breast; Z80.3 Family history of malignant neoplasm of breast
CPT/HCPCS: 77062; 77066

== ENCOUNTER → 2021-05-20 | Day surgery (SDC) | payer OTHER ==
[2021-05-20 09:45] VITALS: BP 116/70; PULSE 74; RESP 16; TEMP 98
--- NOTE | 2021-05-20 13:11 | USB ---
EXAMINATION TYPE: US discontinued breast bx LT DATE OF EXAM: 05/20/2021 COMPARISON: 05/05/2021 HISTORY: 61-year-old male palpable lump left breast referred for biopsy TECHNIQUE: Targeted ultrasound behind and just above the left nipple at the patient's palpable site f or biopsy planning. FINDINGS: The heterogeneous hypoechogenicity that was initially planned for biopsy has a flame-shaped contour t apering behind the nipple. This measures up to 1.7 cm wide and extends only 8 mm deep to the nipple. Findings on the present exam are most consistent with gynecomastia when correlating with the radioa [facility] appearance. The ultrasound machine settings were slightly different giving it a suspicious appea janis. No discrete mass is identified for biopsy. Six-month follow-up can be performed as a precautio nary measure. 6 month follow-up can be performed. Findings and impression are discussed with the colleen ent. IMPRESSION: 1. BI-RADS 3, probably benign. Canceled biopsy as the intended subareolar left breast biopsy target h as a typical appearance of gynecomastia with the current ultrasound machine settings. No suspicious t arget for biopsy could be identified. RECOMMENDATION: 1. As a precautionary measure, 6 month follow-up diagnostic left breast mammogram and left ultrasound can be performed. 2. Recommend further clinical correlation as to possible causes of gynecomastia in this patient. 3. The patient can be rescanned sooner if any suspicious enlarging palpable area is identified.
== END ==
LOC: RADUSWWP 09:28
PROVIDERS: ATTEND Surgery
DX: R92.8 Other abnormal and inconclusive findings on diagnostic imaging of breast (principal)

== ENCOUNTER → 2021-11-22 | Outpatient (CLI) | payer OTHER ==
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
--- NOTE | 2021-11-22 14:53 | XR ---
EXAMINATION TYPE: XR shoulder complete RT DATE OF EXAM: 11/22/2021 COMPARISON: NONE HISTORY: Pain TECHNIQUE: Three views are submitted. FINDINGS: The osseous structures are intact. There is no acute fracture or dislocation. AC joint arthropathy. IMPRESSION: 1. AC joint arthropathy.
== END | disposition home or self-care (01) ==
LOC: RADXRMAIN 13:51
PROVIDERS: ATTEND Emergency Medicine
DX: M12.811 Other specific arthropathies, not elsewhere classified, right shoulder (principal); M43.12 Spondylolisthesis, cervical region; M43.22 Fusion of spine, cervical region; M50.323 Other cervical disc degeneration at C6-C7 level
CPT/HCPCS: 72050

== ENCOUNTER → 2023-01-24 | Outpatient (CLI) | payer OTHER ==
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
== END | disposition home or self-care (01) ==
LOC: RADXRMAIN 11:18
PROVIDERS: ATTEND Family Medicine
DX: M19.171 Post-traumatic osteoarthritis, right ankle and foot (principal); M77.31 Calcaneal spur, right foot; M25.571 Pain in right ankle and joints of right foot